=== PATIENT | male | born 1975 | race Caucasian/White ===

== ENCOUNTER 2021-01-30 09:25 | Day surgery (SDC) | payer OTHER ==
[2021-01-30] MEDS ORDERED: MIDAZOLAM 5 MG/5 ML VIAL ONE (11:00)
[2021-01-30] MEDS ORDERED: LIDOCAINE 2% 100 MG/5 ML UJET TP ONE (11:00)
[2021-01-30] MEDS ORDERED: diphenhydrAMINE 50 MG/ML VIAL ONE (11:00)
[2021-01-30] MEDS ORDERED: fentaNYL citrate 0.05 MG/ML VIAL ONE ×2 (11:00)
[2021-01-31] MEDS ORDERED: fentaNYL citrate 0.05 MG/ML VIAL IVP ONE (07:30)
[2021-01-31] MEDS ORDERED: MIDAZOLAM 2 MG/2 ML VIAL IVP ONE (07:30)
== END 2021-01-30 12:20 | disposition home or self-care (01) ==
LOC: MDS 09:25 → MMU 09:26 → MDS 12:20
PROVIDERS: ATTEND Internal Medicine Gastroenterology
DX: K62.5 Hemorrhage of anus and rectum (principal); K63.5 Polyp of colon; K59.00 Constipation, unspecified; F17.210 Nicotine dependence, cigarettes, uncomplicated; Z79.899 Other long term (current) drug therapy
CPT/HCPCS: 45380; 45385; 88305; J2250; J3010; J1200

== ENCOUNTER 2021-09-18 08:57 | Day surgery (SDC) | payer OTHER ==
[~2021-09-18] VITALS: Ht 177.8 cm; Wt 95.3 kg
[2021-09-18] MEDS ORDERED: LIDOCAINE 2% 100 MG/5 ML UJET TP ONE (09:14)
[2021-09-18] MEDS ORDERED: diphenhydrAMINE 50 MG/ML VIAL ONE (09:14)
[2021-09-18] MEDS ORDERED: MIDAZOLAM 2 MG/2 ML VIAL ONE (09:14)
[2021-09-18] MEDS ORDERED: fentaNYL citrate 0.05 MG/ML VIAL ONE (09:14)
[2021-09-18] MEDS ORDERED: MIDAZOLAM 2 MG/2 ML VIAL IVP ONE (13:05)
[2021-09-18] MEDS ORDERED: fentaNYL citrate 0.05 MG/ML VIAL IVP ONE (13:05)
== END 2021-09-18 10:54 | disposition home or self-care (01) ==
LOC: MDS 08:57 → MMU 08:58 → MDS 10:54
PROVIDERS: ATTEND Internal Medicine Gastroenterology
DX: K59.00 Constipation, unspecified (principal); K57.30 Diverticulosis of large intestine without perforation or abscess without bleeding; K58.9 Irritable bowel syndrome, unspecified; Z87.891 Personal history of nicotine dependence; Z79.899 Other long term (current) drug therapy; Z20.822 Contact with and (suspected) exposure to COVID-19
CPT/HCPCS: 45380; 87426; J2250; J3010; 88305; J1200